=== PATIENT | female | born 1975 ===

== ENCOUNTER 2022-07-14 10:50 | Day surgery (SDC) | payer OTHER ==
[2022-07-14] MEDS ORDERED: IBU400 MG PO (16:34)
[2022-07-14] MEDS ORDERED: ZITHROMAX500 MG PO (16:34)
== END 2022-07-14 18:15 | disposition home or self-care (01) ==
LOC: CIR.AMB 10:50
PROVIDERS: ATTEND Obstetrics & Gynecology
DX: N85.01 Benign endometrial hyperplasia (principal); N72 Inflammatory disease of cervix uteri; Z88.0 Allergy status to penicillin; E16.1 Other hypoglycemia